=== PATIENT | male | born 1965 | race Hispanic/Latino ===

== ENCOUNTER 2016-03-26 12:47 | Emergency (ER) | payer SELFPAY ==
--- NOTE | 2016-03-26 16:26 | XRay Report ---
CHEST 2 VIEWS INDICATION: Shortness of breath with swollen legs for 4 days. Smoker. COMPARISON: None similar. FINDINGS: PA and lateral chest radiographs demonstrate normal cardiomediastinal silhouette. Clear lungs. Thoracic spondylosis. CONCLUSION: No acute disease in the chest. Thank you for the opportunity to participate in this patient's care.
[2016-03-26 16:51] LABS: Hematocrit 44.3 % (35.5-45.6); Hemoglobin 14.4 gm/dl (11.8-15.2); Mean Corpuscular HGB Conc 33 % (32-34); Mean Corpuscular Hemoglobin 28 pg (28-32); Mean Corpuscular Volume 86 fl (84-94); Platelet Count 323 K/mm3 (140-440); Red Blood Count 5.17 M/mm3 (3.65-5.03); Red Cell Distribution Width 14.7 % (13.2-15.2); White Blood Count 11.3 K/mm3 (4.5-11.0)
[2016-03-26 17:03] LABS: Anion Gap 18 mmol/L; Blood Urea Nitrogen 15 mg/dL (9-20); Carbon Dioxide 23 mmol/L (22-30); Chloride 99.6 mmol/L (98-107); Glucose 109 mg/dL (75-100); Potassium 3.6 mmol/L (3.6-5.0); Sodium 137 mmol/L (137-145)
--- NOTE | 2016-03-26 17:03 | Emergency Department Report ---
ED General Adult HPI - General Chief complaint: Skin Rash Stated complaint: SWOLLEN LEGS Time Seen by Provider: 03/26/16 16:00 Source: patient Mode of arrival: Ambulatory Limitations: No Limitations - Related Data Previous Rx's Medication Instructions Recorded Last Taken Type Tobramycin/Dexamethasone [Tobradex 1 - 2 drop OD Q4HR #5 ml 03/26/16 Unknown Rx Eye Drops 0.3/0.1%] Allergies Allergy/AdvReac Type Severity Reaction Status Date / Time No Known Allergies Allergy Unverified 03/26/16 13:24 ED Review of Systems ROS: Stated complaint: SWOLLEN LEGS Other details as noted in HPI ED Past Medical Hx - Past Medical History Hx Hypertension: Yes - Surgical History Hx Appendectomy: Yes Additional Surgical History: colon resection r/t appendectomy - Social History Smoking Status: Current Every Day Smoker Substance Use Type: None - Medications Home Medications: Home Medications Medication Instructions Recorded Confirmed Last Taken Type Tobramycin/Dexamethasone [Tobradex 1 - 2 drop OD Q4HR #5 ml 03/26/16 Unknown Rx Eye Drops 0.3/0.1%] ED Physical Exam - General Limitations: No Limitations ED Course Vital Signs 03/26/16 13:20 Temperature 98.1 F Pulse Rate 109 H Respiratory 18 Rate Blood Pressure 141/107 O2 Sat by Pulse 100 Oximetry ED Medical Decision Making - Radiology Data Radiology results: image reviewed FINDINGS: PA and lateral chest radiographs demonstrate normal cardiomediastinal silhouette. Clear lungs. Thoracic spondylosis. CONCLUSION: No acute disease in the chest. Thank you for the opportunity to participate in this patient's care. Critical care attestation.: If time is entered above; I have spent that time in minutes in the direct care of this critically ill patient, excluding procedure time. ED Disposition Clinical Impression: Iritis acute or subacute Disposition: DISCHARGED TO HOME OR SELFCARE Is pt being admited?: No Does the pt Need Aspirin: No Condition: Stable Instructions: Iritis (ED) Additional Instructions: Very important to use the eyedrops as prescribed. 1-2 drops to the right eye every 3-4 hours while awake. He is even more important for you to follow up with an fire claims adjuster we have referred to chew a few to get him within 24-48 hours. Prescriptions: Tobramycin/Dexamethasone [Tobradex Eye Drops 0.3/0.1%] 1 - 2 drop OD Q4HR #5 ml Referrals: PRIMARY CAREMD [Primary Care Provider] - 3-5 Days IGNACIO AGUILAR MD [Staff Physician] - 3-5 Days NOEMI QUIROZ MD [Staff Physician] - 3-5 Days ZARINA WOOD MD [Staff Physician] - 3-5 Days Forms: Work/School Release Form(ED)
--- NOTE | 2016-03-26 17:22 | Emergency Department Report ---
ED General Adult HPI - General Chief complaint: Skin Rash Stated complaint: SWOLLEN LEGS Time Seen by Provider: 03/26/16 16:00 Source: patient Mode of arrival: Ambulatory Limitations: No Limitations - History of Present Illness Initial comments: 50-year-old male comes in for rash under his arms in his groin and behind his knees in the fold of his pannus. As well as complaining of shortness of breathing for 4 days with leg swelling. Patient denies any past medical history. He admits to shortness of breathing up walking and lying down. - Related Data Previous Rx's Medication Instructions Recorded Last Taken Type Nystatin [Nystop Powder] 1 applicatio TP TID #3 bottle 03/26/16 Unknown Rx Allergies Allergy/AdvReac Type Severity Reaction Status Date / Time No Known Allergies Allergy Unverified 03/26/16 13:24 ED Review of Systems ROS: Stated complaint: SWOLLEN LEGS Other details as noted in HPI Respiratory: shortness of breath, SOB with exertion, SOB at rest Cardiovascular: denies: chest pain Skin: rash, pruritus ED Past Medical Hx - Past Medical History Hx Hypertension: Yes - Surgical History Hx Appendectomy: Yes Additional Surgical History: colon resection r/t appendectomy - Social History Smoking Status: Current Every Day Smoker Substance Use Type: None - Medications Home Medications: Home Medications Medication Instructions Recorded Confirmed Last Taken Type Nystatin [Nystop Powder] 1 applicatio TP TID #3 bottle 03/26/16 Unknown Rx ED Physical Exam - General Limitations: No Limitations General appearance: alert, in no apparent distress - Head Head exam: Present: atraumatic, normocephalic - Respiratory Respiratory exam: Present: normal lung sounds bilaterally - Cardiovascular Cardiovascular Exam: Present: tachycardia, normal heart sounds - Skin Skin exam: Present: warm, dry, rash - Expanded Skin Exam Expanded Description of rash: Present: erythematous, vesicular, purpuic, other (scaly) ED Course Vital Signs 03/26/16 03/26/16 13:20 17:44 Temperature 98.1 F Pulse Rate 109 H 100 H Respiratory 18 18 Rate Blood Pressure 141/107 Blood Pressure 140/100 [Right] O2 Sat by Pulse 100 100 Oximetry ED Medical Decision Making - Lab Data Result diagrams: 03/26/16 16:32 03/26/16 16:32 - Medical Decision Making Patient's been evaluated by this provider. 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 Those results to come back within normal limits. We will treat patient for his rash and have him follow-up with a primary care provider for further evaluation. Treat patient's rash with nystatin powder. Critical care attestation.: If time is entered above; I have spent that time in minutes in the direct care of this critically ill patient, excluding procedure time. ED Disposition Clinical Impression: Iritis acute or subacute Disposition: DISCHARGED TO HOME OR SELFCARE Is pt being admited?: No Does the pt Need Aspirin: No Condition: Stable Instructions: Tinea Versicolor (ED) Additional Instructions: Very important to use the eyedrops as prescribed. 1-2 drops to the right eye every 3-4 hours while awake. He is even more important for you to follow up with an plant engineering manager we have referred to chew a few to get him within 24-48 hours. Prescriptions: Nystatin [Nystop Powder] 1 applicatio TP TID #3 bottle Referrals: JOSEE FRIEDMAN MD [Staff Physician] - 3-5 Days
[2016-03-26 17:45] VITALS: BP 140/100
== END 2016-03-26 17:43 | disposition home or self-care (01) ==
LOC: ED 12:47
DX: B35.9 Dermatophytosis, unspecified (principal); R06.02 Shortness of breath; M79.89 Other specified soft tissue disorders; I10 Essential (primary) hypertension; F17.200 Nicotine dependence, unspecified, uncomplicated
CPT/HCPCS: 36415; 71020; 80048; 83880; 85027